=== PATIENT | female | born 1985 | race Two or more races ===

== ENCOUNTER 2017-07-06 19:41 | Emergency (ER) | payer OTHER ==
[~2017-07-06] VITALS: Ht 149.9 cm; Wt 47.6 kg
== END 2017-07-06 22:14 | disposition home or self-care (01) ==
LOC: ER 19:41
DX: S90.02XA Contusion of left ankle, initial encounter (principal); W07.XXXA Fall from chair, initial encounter; Y93.89 Activity, other specified; Y92.89 Other specified places as the place of occurrence of the external cause; Y99.8 Other external cause status